=== PATIENT | male | born 1960 | race Two or more races ===

== ENCOUNTER → 2018-03-02 | Emergency (ER) | payer BC ==
[~2018-03-02] VITALS: Ht 182.9 cm; Wt 88.5 kg
[~2018-03-02] MED LIST: AMOX-CLAV 875-1 EACH PO; INTESTINEX680 M1 PO
== END | disposition home or self-care (01) ==
LOC: ER 19:27
DX: S91.141A Puncture wound with foreign body of right great toe without damage to nail, initial encounter (principal); W26.8XXA Contact with other sharp object(s), not elsewhere classified, initial encounter; Y93.89 Activity, other specified; Y92.832 Beach as the place of occurrence of the external cause; Y99.8 Other external cause status